=== PATIENT | female | born 1995 | race Caucasian/White ===

== ENCOUNTER → 2018-07-10 | Outpatient (CLI) | payer OTHER ==
[2016-10-03 12:10] VITALS: BMI 29.2
[~2018-07-10] MED LIST: CALC-521 PO; FERR-53 PO; IBUP800T37 PO; MEDR10TA57 PO; PER PO; PREN-127 PO
== END ==
LOC: LAB 08:54
PROVIDERS: ATTEND Student in an Organized Health Care Education/Training Program
DX: N92.6 Irregular menstruation, unspecified (principal)
CPT/HCPCS: 36415; 84443

== ENCOUNTER → 2019-02-07 | Outpatient (CLI) | payer OTHER ==
[2016-10-03 12:10] VITALS: BMI 29.2
[~2019-02-07] MED LIST changes: +IOPAMIDOL 20 ML VIAL IT ONE; +IOPAMIDOL-200 50 ML VIAL IS ONE; +METF-450 PO
--- NOTE | 2019-02-07 16:52 | OPERATIVE REPORT 1 ---
EVENT DATE: February 07, 2019 SURGEON: Coreen Minaya DO ANESTHESIOLOGIST: None. ANESTHESIA: None. MORTGAGE ORIGINATOR: Med Ladd DO PREOPERATIVE DIAGNOSES 1. Secondary infertility. 2. Abnormal menses. POSTOPERATIVE DIAGNOSES 1. Secondary infertility. 2. Abnormal menses. 3. Occlusion of left fallopian tube. PROCEDURE PERFORMED Hysterosalpingogram. ESTIMATED BLOOD LOSS None. TISSUES REMOVED None. COMPLICATIONS None. DISPOSITION Stable to home. DESCRIPTION OF PROCEDURE After informed consent and a timeout were performed, and urine test was noted to be negative, the patient was taken back to the Radiology Suite. She was positioned in the dorsal lithotomy position and then prepped and draped in normal sterile fashion. An operative speculum was placed into the vagina. Cervix was visualized and swabbed with Betadine. The cervix was then grasped along the anterior aspect with a single-toothed tenaculum and placed on tension. An os finder was used to cannula the cervix. After that, the cannula for the HSG was deployed into the patient's cervix and then within to the uterine body. The small balloon to prevent back spillage of dye was insufflated with 3 cc of air. Next, the operative speculum and the single-toothed tenaculum were removed. Through the cannula, we did dispense Isovue 200, approximately 10 mL of solution under fluoroscopy. The fluid was noted to fill the cavity with a normal appearance. We did have spillage noted from the right fallopian tube. However, the left fallopian tube was never identified, and there was never any peritoneal spillage on that side. Procedure time was approximately five minutes. After the procedure was over, the cannula for the HSG was removed. The patient was doing well, had no concerns. We did investment counselor the patient that she does appear to have an occluded left fallopian tube. She will follow up in the office in two months for further treatment. RADHA
--- NOTE | 2019-02-07 16:57 | RADIOLOGY IMAGING REPORT ---
FACILITY: [facility] - [place] PATIENT NAME: Camila Robert : 1995 MR: [id number] V: [id number] EXAM DATE: ORDERING PHYSICIAN: NATALIYA FISH TECHNOLOGIST: Location: [facility] [place] Patient: Camila Robert : 1995 Visit/Account:[id number] Date of Sevice: 02/07/2019 EXAMINATION: 02/07/2019 8:22 AM HISTORY: FEMALE INFERTILITY, UNSPECIFIED COMPARISON: None FLUOROSCOPY TIME: 1.1 minutes. DOSE: DAP was 6.10 Gy*cm2. FINDINGS: Hysterosalpingogram was performed by . Fluoroscopic images obtained demonstrates patent f allopian tubes bilaterally with free spillage from both fallopian tubes. The uterus is normal. IMPRESSION: 1. Patent fallopian tubes bilaterally with free spillage. Report Dictated By: Richard Adkins MD at 02/07/2019 4:08 PM Report E-Signed By: Richard Adkins MD at 02/07/2019 4:54 PM WSN:[email or web address]
== END ==
LOC: RAD 01:39
PROVIDERS: ATTEND Obstetrics & Gynecology
DX: N97.1 Female infertility of tubal origin (principal)
CPT/HCPCS: 36415; 58340; 74740; 84703; Q9966